=== PATIENT | male | born 1970 | race Caucasian/White ===

== ENCOUNTER 2024-12-21 11:10 | Outpatient (AMB) | payer MEDICAID, SELFPAY ==
--- NOTE | 2024-12-21 11:23 | A.OFFVISCC_ITS ---
Vital Signs 12/21/24 11:41 Height 5 ft 9.29 in Weight 160 lb 2 oz BMI 23.4 BP 150/90 H Blood Pressure Location Lt brachial Position Sitting Respiration 19 Pulse 111 H Pulse Source Pulse Oximeter Pulse Oximetry (%) 98 Oxygen Delivery Method Room Air Intake Visit Reasons: Intake Allergies No Known Allergies Allergy (Verified 12/22/24 17:17) HPI HPI Intake: Details: Patient presents for evaluation and treatment of alcohol use Full substance use history obtained by RN Drinking 15-20 nips of whiskey daily Drinking increased over the last few months from after work, to at lunch to eventually being terminated due to being under the influence at work He states that several weeks ago he attemoted to stop drinking and as a result had a seizure At time of visit, he reports last drink being 2 days ago Denies any withdrawal sx--but sleep is impacted, and states that anxiety is due to not working tremor visible Denies any GI sx, including vomiting or reflux Medical History -reports cardiac history with stent in place -only medication he is taking is ASA -has not seen provider in the last year His goal is to safely detox from alcohol He states that he does not wish to be admitted for medical detox, because his partner will be unable to leave the home as he is the one who drives Discussed concerns with at home detox, including recent seizure activity, and comorbid cardiac issues Review of Systems Const Reports as per HPI and Reports no additional complaints Physical Exam Vital Signs: Last Vital Signs Pulse 111 H 12/21/24 11:41 Resp 19 12/21/24 11:41 BP 150/90 H 12/21/24 11:41 Pulse Ox 98 12/21/24 11:41 Oxygen Delivery Method Room Air 12/21/24 11:41 BMI result Body Mass Index 23.4 Const General: cooperative, comfortable, alert and awake Nutritional Appearance: average body habitus Orientation/consciousness: patient oriented x3 Limitations: no limitations Neuro General: patient oriented x3 Psych Appearance: grossly normal Speech and movement: Normal speech and movement present Affect: normal affect Attitude: cooperative Thought process: Normal thought process present Thought content: Normal thought content present Insight: Good insight present (Psych) Judgement: Fair judgement present (Psych) Quality Reporting (2019) Depression/Bipolar (159/160/161/177) PHQ-9: Total score: 4 Assessment & Plan Assessment & Plan (1) Alcohol use disorder, severe, dependence: Code(s): F10.20 - Alcohol dependence, uncomplicated Category: Medical Plan: * provided patient with ATS facilities --he would like to discuss with his partner first * advised patient that at home withdrawal management would not be advised given medical history and risks associated with this * encouraged patient to present to ED should withdrawal sx worsen * discussed risk of recurrence of seizure given that he abruptly stopped alcohol again * will follow up once he decides how he wants to move forward MAT Intake Nursing Intake Reason for visit: Looking to stop drinking Are you currently using?: Yes What are you taking?: Whiskey When was your last use?: 2 days ago How much?: 15-25 nips What is your source of income?: Unemployed What is your current relationship status?: Has a live in girlfriend Current PCP: N/A Date of last visit: within a year, states his pcp left, and he was unable to establish care with another. He was given a list of [facility] [place] and numbers to call. Referral Source: Patient Registration Details: Patient arrived to the [facility] as a walk-in, reffered by our financial registration team. He states that yesterday he attempted to go to [facility] and found he had lost his insurance. While obtaining insurance today at [facility], he let them know he was looking for help with AUD and came to us. Patient arrived with his mother, he was a+o x4 at time of assessment, vitals stable, No signs or symptoms of obvious distress. Speaking in appropriate and clear sentences. Questions for nurse intake below. After patient met with Marleny Mei APRN, I met with him again to give him detox information, numbers and addresses per Erika direction. Patient verbally understood. Patient was encouraged to reach out to myself and or the [facility] with any questions. Substance Abuse History Substance Abuse History (includes route, frequency and quantity): Alcohol and Marijuana Age of first use: In my teen years Social History Domestic Violence concerns: Denies Children: 1 son he states I dont really see him Do you have a support system?: Yes, family and g/f, he smiled when stating this. Current mode of transportation?: States he has transportation, did not elaborate. Where are you currently residing?: [place] LMP: N/A IV Drug Use Have you ever shared needles?: No Have you ever belonged to a needle exchange program?: No Do you buy needles at a pharmacy?: No Have you ever overdosed?: No Have you ever been hospitalized for an overdose?: No Was Naloxone administered?: Not applicable Recovery History Have you had any periods of recovery?: No Have you ever had inpatient treatment for your substance abuse disorder?: No Have you been in an inpatient detoxification program?: No Have you been in an inpatient Rehab/[place] house?: No Have you been in an outpatient Methadone Maintenance program?: No Have you been in an outpatient Suboxone Maintenance program?: No Have you been in an AA/NA support program?: No Have you had a Recovery Support Computer Forensics Examiner?: No Have you had Peer Support?: No Behavioral Health History Do you have a current provider? If so, who?: No diagnosis: Denies History of other addictive behavior: Denies History of inpatient psychiatric hospitalization? If so, how many? Most Recent? Where?: Denies History of self harming thoughts?: No History of homicidal or suicidal intentions?: No Medical Conditions Endocarditis?: No Skin Infection: No Seizure related to withdrawal or overdose: Yes (states many over a long period of time) Head or brain injury: No Hepatitis A (if yes, have you been treated?): No Hepatitis B (if yes, have you been treated?): No Hepatitis C (if yes, have you been treated?): No HIV (if yes, have you been treated?): No TB (if yes, have you been treated?): No Other: Yes (states he had a cardiac stent placed, and supposed to be on a cardiac med but isnt ) Do you have any chronic pain conditions?: Denies Details: Patient states he does take an over the counter baby aspirin daily. Legal History Details: Did not discuss the above PHQ-9 Over the last 2 weeks, how often have you been bothered by any of the following problems? 1. Little interest or pleasure in doing things: several days 2. Feeling down, depressed, or hopeless: not at all 3. Trouble falling or staying asleep, or sleeping too much: several days 4. Feeling tired or having little energy: not at all 5. Poor appetite or overeating: several days 6. Feeling bad about yourself - or that you are a failure or have let yourself or your family down: several days 7. Trouble concentrating on things, such as reading the newspaper or watching television: not at all 8. Moving or speaking so slowly that other people could have noticed. Or the opposite - being so fidgety or restless that you have been moving around a lot more than usual: not at all 9. Thoughts that you would be better off or of hurting yourself in some way: not at all Total score: 4 Depression Screening Interpretation: Negative Depression Screening Done: Yes 12692 - PHQ-9 Billing: Yes Source: Developed by Drs. Scott Dill, Wendy Quiñones, Ubaldo Johnson and colleagues, with an educational elías from [employer]. RENATO-7 AMB Questionnaire RENATO-7 Date RENATO - 7 assessed: 12/21/24 Feeling nervous, anxious, or on edge: 1 = Several days Not being able to stop or control worryin = More than half the days Worrying too much about different things: 2 = More than half the days Trouble relaxin = Not at all Being so restless that it is hard to sit still: 0 = Not at all Becoming easily annoyed or irritable: 0 = Not at all Feeling afraid as if something awful might happen: 0 = Not at all Total RENATO-7 score (0-4 normal; 5-9 mild; 10-14 moderate; 15-21 severe): 5 Source: Developed by Drs. Scott Dill, Wendy Quiñones, Ubaldo Johnson and colleagues, with an educational elías from [employer]. RENATO-7 Assessment Billing RENATO-7 Assessment Tool: RENATO-7 Assessment [id number]
[2024-12-21 11:41] VITALS: BP 150/90; PULSE 111; RESP 19; O2SAT 98; BMI 23.4
--- OUTSIDE RECORDS SUMMARY | 2024-12-21 12:24 | XMS_ITS | Clinical Summary ---
Author Organization [facility] ity Address [address] [place] [address] Care Team Providers Care Motion Study Technician Name Role Phone Unavailable Primary Care Provider Unavailabl e Social History Tobacco Use Types Packs/Day Years Used Date Smoking Tobacco: Never Assessed Sex and Gender Information Value Date Recorded Sex Assigned at Not on file Gender Identity Not on file Sexual Orientation Not on file Plan of Treatment Health Maintenance Due Date Last Done Comments DTaP,Tdap,and Td Vaccines (1 - Tdap) 1990 Hepatitis B Vaccines (1 of 3 - 19+ 3-dose series) 1990 Zoster Vaccines (1 of 2) 2021 COVID-19 Vaccine (2023-2 5 season) 2024 Influenza Vaccine (#1) 2024 HIB Vaccines Aged Out No longer eligi ble based on patient's age to complete this topic HPV Vaccines Aged Out No longer eligi ble based on patient's age to complete this topic Hepatitis A Vaccines Aged Out No long er eligible based on patient's age to complete this topic IPV Vaccines Aged Out No longer eligi ble based on patient's age to complete this topic MMR Vaccines Aged Out No longer eligi ble based on patient's age to complete this topic Meningococcal ACWY Vaccine Aged Out N o longer eligible based on patient's age to complete this topic Pneumococcal Vaccine: Pediat rics (0 to 5 Years) and At-Risk Patients (6 to 64 Years) Aged Out No longer eligible b ased on patient's age to complete this topic RSV Immunization Patients Un rosina 20 months Aged Out No longer eligible b ased on patient's age to complete this topic Varicella Vaccines Aged Out No longer eligible based on patient's age to complete this topic
== END 2024-12-21 11:50 | disposition home or self-care (01) ==
PROVIDERS: Visit Provider Nurse Practitioner Psychiatric/Mental Health
DX: F10.20 Alcohol dependence, uncomplicated (principal)
CPT/HCPCS: 99204

== ENCOUNTER → 2024-12-21 11:10 | Outpatient (BNVA) | payer MEDICAID, SELFPAY | PROVIDERS: Visit Provider Nurse Practitioner Psychiatric/Mental Health | DX: F10.20 Alcohol dependence, uncomplicated (principal) | CPT/HCPCS: 96127; 99212 ==